=== PATIENT | male | born 2000 | race African-American/Black ===

== ENCOUNTER 2021-11-14 14:13 | Emergency (ER) | payer OTHER, SELFPAY ==
[2021-11-14 14:15] VITALS: BP 152/78; PULSE 100; RESP 24; TEMP 36.8; O2SAT 100
[2021-11-14 15:15] VITALS: O2SAT 98
--- NOTE | 2021-11-14 15:16 | PC.NURSE ---
pt amb to room 21. c/o n/v, joel and cough. tested positive for covid today and has all the things . pt did not receive vaccine.
[2021-11-14 15:36] VITALS: BP 100/53; PULSE 74; RESP 18; O2SAT 98
[2021-11-14] MEDS: ONDANSETRON HCL ODT 4 MG TABLET PO (15:36)
--- NOTE | 2021-11-14 15:37 | PC.NURSE ---
pt has partially drunk pasha d and 32 oz at bedside. pt given zofran for nausea. advised of plan to wait 20 min then attempt po intake and med for fever.
[2021-11-14 16:06] VITALS: TEMP 36.9
--- NOTE | 2021-11-14 16:37 | PC.NURSE ---
father updated of pts condition at the nurses desk and pts mother updated upon her call again to the department. made aware that pt has a cell phone at his bedside and that we have received multiple calls from multiple family members and we need to have one lithography contact worker. mother agreed that person would be her.
--- NOTE | 2021-11-14 18:30 | ED.GENADULT ---
HPI - General Adult General Chief complaint: Upper Respiratory Infection Stated complaint: COVID+ NV Time Seen by Provider: 11/14/21 15:18 Source: patient Mode of arrival: ambulatory Limitations: no limitations History of Present Illness HPI narrative: Patient is a 21-year-old unvaccinated male presenting with chief complaint of nausea and vomiting that began today. Patient also reports body aches and headache. Patient reports that he tested positive for COVID on a home test today. Patient denies accompanying abdominal pain with nausea and vomiting. He denies diarrhea. He reports feeling fevers but not documented in the fever as well as having occasional coughs. Patient denies chest pain, shortness of breath, neurological deficits or any other emergent symptoms. Patient denies having any chronic medical issues. Related Data Home Medications Medication Instructions Recorded Confirmed No Home Medications 11/14/21 11/14/21 Allergies Allergy/AdvReac Type Severity Reaction Status Date / Time No Known Allergies Allergy Verified 11/14/21 15:15 Review of Systems Review of Systems: CONSTITUTIONAL: Reports subjective fever and body aches denies chills, or sweats. EYES: Denies visual changes, redness, or discharge. ENT: Denies rhinorrhea, congestion, sore throat, or otalgia. CARDIOVASCULAR: Denies chest pain, palpitations, or edema. RESPIRATORY: Reports cough denies dyspnea. GASTROINTESTINAL: Reports nausea and vomiting denies abdominal pain, or diarrhea. GENITOURINARY: Denies dysuria or hematuria. SKIN: Denies rash or itching. MUSCULOSKELETAL: Denies back pain, joint pain, or myalgia. NEUROLOGIC: Reports headache denies numbness, dizziness, or weakness. PSYCHIATRIC: Denies anxiety or depression. Exam Narrative: GENERAL: Well-appearing, well-nourished. Not diaphoretic. Appears mildly uncomfortable. HEAD: Normocephalic, atraumatic. EYES: PERRLA and EOMI. CHEST: Clear to auscultation. No respiratory distress. No wheezes rales or rhonchi. HEART: Regular rate and rhythm. ABDOMEN: Soft, nontender, nondistended, normal active bowel sounds. EXTREMITIES: Normal range of motion. No edema. SKIN: Warm, dry, no rash. NEURO: No focal deficits. Alert and oriented x3. PSYCH: Normal mood and affect. Course Vital Signs Vital signs: Vital Signs Temperature 98.2 F 11/14/21 14:15 Pulse Rate 100 11/14/21 14:15 Respiratory Rate 24 H 11/14/21 14:15 Blood Pressure 152/78 H 11/14/21 14:15 Pulse Oximetry 100 11/14/21 14:15 Temperature 98.5 F 11/14/21 16:06 Pulse Rate 74 11/14/21 15:36 Respiratory Rate 18 11/14/21 15:36 Blood Pressure 100/53 L 11/14/21 15:36 Pulse Oximetry 98 11/14/21 15:36 Medical Decision Making MDM Narrative Medical decision making narrative: Patient vital signs are stable. Patient is not tachycardic. Patient respiratory rate is normal at 18. Patient is oxygenation is at 100% on room air. Patient has been given Zofran and has been able to drink plenty of fluids while in the emergency department. Patient will be prescribed Zofran and Tessalon Perles for home. Patient instructed to return to emergency department if he has any emergent symptoms. Patient instructed to follow the department guidelines in regards to pointing extra. Vital Signs Vital Signs: Vital Signs Temperature 98.2 F 11/14/21 14:15 Pulse Rate 100 11/14/21 14:15 Respiratory Rate 24 H 11/14/21 14:15 Blood Pressure 152/78 H 11/14/21 14:15 Pulse Oximetry 100 11/14/21 14:15 Temperature 98.5 F 11/14/21 16:06 Pulse Rate 74 11/14/21 15:36 Respiratory Rate 18 11/14/21 15:36 Blood Pressure 100/53 L 11/14/21 15:36 Pulse Oximetry 98 11/14/21 15:36 Discharge Plan Discharge Clinical Impression: COVID-19 Nausea & vomiting Qualifiers: Vomiting type: unspecified Qualified Code(s): R11.2 - Nausea with vomiting, unspecified Patient Disposition: Home, Self-Care Condition: Imp
== END 2021-11-14 17:15 | disposition home or self-care (01) ==
PROVIDERS: Emergency Provider Emergency Medicine; PCP Pediatrics Adolescent Medicine
DX: U07.1 COVID-19 (principal); R11.2 Nausea with vomiting, unspecified
CPT/HCPCS: 99283; A9270

== ENCOUNTER 2022-09-23 02:08 | Emergency (ER) | payer SELFPAY ==
[2022-09-23 02:15] VITALS: BP 124/75; PULSE 66; RESP 16; TEMP 36.8; O2SAT 100
--- NOTE | 2022-09-23 02:16 | ED_ITS ---
HPI - URI/Sore Throat General Chief Complaint: Upper Respiratory Infection Stated Complaint: I just tested positive for COVID Time Seen by Provider: 09/23/22 02:15 History of Present Illness HPI Narrative: 22-year-old male no medical problems presents to the emergency room stating I j ust tested positive for COVID and I can handle the symptoms. . Patient is complaining of body aches, fever, headaches, nausea and diarrhea. Patient denies any shortness of breath or difficulty breathing. Related Data Allergies Allergy/AdvReac Type Severity Reaction Status Date / Time No Known Allergies Allergy Verified 11/14/21 15:15 Review of Systems Review of Systems: CONSTITUTIONAL: Reports fever EYES: Denies visual changes, redness, or discharge. ENT: Denies rhinorrhea, congestion, sore throat, or otalgia. CARDIOVASCULAR: Denies chest pain, palpitations, or edema. RESPIRATORY: Denies cough or dyspnea. GASTROINTESTINAL: Denies abdominal pain, nausea, vomiting, or diarrhea. GENITOURINARY: Denies dysuria or hematuria. SKIN: Denies rash or itching. MUSCULOSKELETAL: Ports body aches NEUROLOGIC: Reports headache PSYCHIATRIC: Denies anxiety or depression. Exam Narrative: GENERAL: Well-appearing, well-nourished, no physical limitations, and in no acute distress. HEAD: Normocephalic, atraumatic. EYES: Conjunctivae normal, PERRLA and EOMI. ENT: External nose normal, Nares clear, no rhinorrhea or epistaxis. Mucous membranes moist. Oropharynx without tonsillar hypertrophy exudate or other lesions. External ears normal, bilateral TMs normal bilaterally NECK: Supple. No adenopathy or masses. CHEST: Clear to auscultation. No respiratory distress. No wheezes rales or rhonchi. HEART: Regular rate and rhythm. No murmur heard. Normal peripheral pulses. EXTREMITIES: Normal range of motion. No edema. No clubbing or cyanosis SKIN: Warm, dry, no rash. No noted wounds NEURO: No focal deficits. Alert and oriented x3. MAEW. CN's II-XI intact bilaterally, normal gait PSYCH: Cooperative. Normal mood and affect. Discharge Plan Discharge Clinical Impression: COVID-19 Patient Disposition: Home, Self-Care Condition: Stable Instructions: Antibiotic Form, COVID-19 (Coronavirus Disease 2019) (ED) Additional Instructions: Recommend quarantining for the next 5 days per CDC guidelines. Prescriptions: New ondansetron 4 mg tablet,disintegrating 4 mg PO Q8H Qty: 14 0RF No Action ondansetron 4 mg tablet,disintegrating 4 mg PO Q6H PRN (Reason: nausea and vomiting) Qty: 14 0RF Follow-up/Referrals: Reynaldo,Vijaya Lopez MD [Primary Care Provider] - Time of Disposition: 02:13
[2022-09-23 02:17] VITALS: O2SAT 100
== END 2022-09-23 02:22 | disposition home or self-care (01) ==
LOC: ANHED 02:21
PROVIDERS: Emergency Provider Nurse Practitioner Family; PCP Pediatrics Adolescent Medicine
DX: U07.1 COVID-19 (principal)
CPT/HCPCS: 99283

== ENCOUNTER 2023-09-23 13:35 | Emergency (ER) | payer OTHER, SELFPAY ==
--- NOTE | ~2023-09-23 | US_ITS ---
EXAMINATION: US abdomen limited DATE: 09/23/2023 16:02 INDICATION: RUQ pain TECHNIQUE: Multiple grayscale and Doppler ultrasound images of limited portions of the abdomen were o btained. COMPARISON: None available. FINDINGS: The visualized portions of the pancreas are normal. The liver is normal with normal echogen icity and echotexture. No surface nodularity. Normal hepatopetal flow in the main portal vein. The ga llbladder is partially contracted, with borderline wall thickening likely related to the degree of co ntraction, no pericholecystic fluid or stones. The common bile duct measures 2 mm. There was no sonog raphic Flowers sign. IMPRESSION: Partially contracted but otherwise unremarkable gallbladder appearance. Otherwise normal limited abdominal ultrasound findings. Reviewed, dictated and finalized at location K. [employer]
[2023-09-23 13:36] VITALS: BP 116/62; PULSE 72; RESP 18; TEMP 36.6; O2SAT 99
[2023-09-23 13:49] LABS: Basophils Absolute Auto 0.1 K/mm3 (0.0-0.1); Basophils Percent Auto 0.8 % (0.2-1.2); Eosinophils Absolute Auto 0.3 K/mm3 (0-0.3); Eosinophils Percent Auto 2.8 % (0-4.4); Hematocrit 40.9 % (42.0-52.0); Immature Granulocyte Absolute 0.04 K/mm3 (0.00-0.031); Immature Granulocyte Percent A 0.4 % (0-0.5); Lymphocytes Absolute Auto 1.43 K/mm3 (0.9-3.2); Mean Corpuscular HGB Conc 34.2 g/dl (32-36); Mean Corpuscular Hemoglobin 31.7 pg (26-34); Mean Corpuscular Volume 92.5 fl (80-100); Monocytes Absolute Auto 0.8 K/mm3 (0.1-0.6); Monocytes Percent Auto 9.4 % (2.6-8.5); Neutrophils Absolute Auto 6.3 K/mm3 (1.3-6.7); Neutrophils Percent Auto 70.6 % (45.5-73.1); Platelet Count Result 198 k/mm3 (150-375); Red Blood Count 4.42 M/mm3 (4.6-6.20); Red Cell Distribution Width 12.3 % (11.5-14.5)
[2023-09-23 13:55] LABS: Appearance Urine Clear (Clear); Bilirubin Urine Negative (Negative); Blood Urine Negative (Negative); Color Urine Yellow (Yellow); Glucose Urine UA Negative (Negative); Ketones Urine Negative (Negative); Leukocyte Esterase Ur Negative LEU/UL (Negative); Nitrate Urine Negative (Negative); Protein Urine Negative (Negative); Specific Grav Ur 1.026 (1.001-1.035)
[2023-09-23 13:59] LABS: Alanine Aminotransferase 13 U/L (6-50); Albumin Level 4.5 g/dL (3.5-5.1); Alkaline Phosphatase 65 U/L (38-126); Anion Gap 11 mmol/L (8-16); Aspartate Amino Transferase 30 U/L (17-59); Blood Urea Nitrogen 10 mg/dL (9-20); Calcium 9.1 mg/dL (8.4-10.2); Carbon Dioxide 28 mmol/L (22-30); Chloride 103 mmol/L (98-107); Estimated CRCL calculation 125 ml/min; Estimated Glomerular Filt Rate > 60; Glucose 98 mg/dL (65-110); Lipase 47 U/L (23-300); Potassium 4.1 mmol/L (3.4-5.0); Sodium 142 mmol/L (137-145)
[2023-09-23 14:13] LABS: Add Urine Microscopic? NO
--- NOTE | 2023-09-23 15:23 | ED.ABDPAIN ---
HPI - Abdominal Pain General Chief Complaint: Abdominal Pain Stated Complaint: ab pain Time Seen by Provider: 09/23/23 15:22 History of Present Illness HPI narrative: Patient is a healthy 23-year-old male here with right upper quadrant pain. He states that the pain began about 1 week ago, is intermittent in nature and usually occurs about 30 minutes after eating. He states that it will be persistent delayed take something like ibuprofen or Tylenol which seems to resolve the symptoms. He denies any associated nausea or vomiting, no fever or chills. He has experienced a couple episodes of diarrhea. No prior abdominal surgeries. No prior biliary colic type symptoms in the past prior to this last 1 week. No prior abdominal surgeries. No sick contacts. No cough, congestion. Related Data Allergies Allergy/AdvReac Type Severity Reaction Status Date / Time No Known Allergies Allergy Verified 09/23/23 13:36 Review of Systems Review of Systems: All systems reviewed & are unremarkable except as noted in HPI and below Exam Narrative: GENERAL: Well-appearing, well-nourished, and in no acute distress. HEAD: Normocephalic, atraumatic. EYES: PERRLA and EOMI. ENT: Nares clear. Mucous membranes moist. NECK: Supple. CHEST: Clear to auscultation. No respiratory distress. HEART: Regular rate and rhythm. Normal peripheral pulses. ABDOMEN: Soft, non distended, no rebound or guarding. RUQ tenderness with + flowers sign. No McBurney point tenderness. EXTREMITIES: Normal range of motion. No edema. SKIN: Warm, dry, no rash. NEURO: No focal deficits. Alert and oriented x3. PSYCH: Normal mood and affect. Course Course Emergency Course: Chart review performed patient here with RUQ abdominal pain x1 week. Triage vitals normal. Last visit was ED visit in 2021 for COVID. Triage lab work reviewed, no leukocytosis, normal electrolytes, Bilirubin minimally elevated at 2.0, remainder of LFTs normal. UA negative for UTI. Patient seen and evaluated, non toxic appearing, RUQ tenderness and + Flowers's sign. Will do right upper quadrant ultrasound to evaluate for possible biliary pathology. Ultrasound partially contracted but otherwise unremarkable. Will give GI cocktail and plan to discharged with primary care follow-up. The results of pertinent diagnostic studies and exam findings were discussed. The patient?s provisional diagnosis and plan of care were discussed with the patient and present family. The patient and/or present family expressed understanding of the diagnosis and plan. The nurse was instructed to provide written instructions and appropriate follow-up information. The patient understands their need and responsibility to obtain additional follow-up as instructed. The risks of medications administered and prescribed were discussed with the patient and family present. Vital Signs Vital signs: Vital Signs Temperature 97.9 F 09/23/23 13:36 Pulse Rate 72 09/23/23 13:36 Respiratory Rate 18 09/23/23 13:36 Blood Pressure 116/62 09/23/23 13:36 Pulse Oximetry 99 09/23/23 13:36 Oxygen Delivery Room Air 09/23/23 13:36 Temperature 97.9 F 09/23/23 13:36 Pulse Rate 76 09/23/23 17:07 Respiratory Rate 16 09/23/23 17:07 Blood Pressure 124/76 09/23/23 17:07 Pulse Oximetry 99 09/23/23 17:07 Oxygen Delivery Room Air 09/23/23 13:36 MDM - Abdominal Pain Lab Data 09/23/23 13:42 09/23/23 13:42 Labs: Lab Results 09/23/23 09/23/23 Range/Units 13:42 13:45 WBC 9.0 (4.5-10.0) K/mm3 RBC 4.42 L (4.6-6.20) M/mm3 Hgb 14.0 (14.0-18.0) g/dL Hct 40.9 L (42.0-52.0) % MCV 92.5 (80-100) fl MCH 31.7 (26-34) pg MCHC 34.2 (32-36) g/dl RDW 12.3 (11.5-14.5) % Plt Count 198 (150-375) k/mm3 MPV 10.0 (7.4-10.4) fl Immature Gran % (Auto) 0.4 (0-0.5) % Neut % (Auto) 70.6 (45.5-73.1) % Lymph % (Auto) 16.0 L (18.3-44.2) % [place] % (Au
[2023-09-23] MEDS: BELLADONNA ALK/PHENOB ELIX 10 ML, MAG HYDROX/ALUMINUM HYD/SIMETH 30 ML, LIDOCAINE HCL 2... PO (17:05)
[2023-09-23] MEDS: FAMOTIDINE 20 MG TABLET PO (17:06)
[2023-09-23 17:07] VITALS: BP 124/76; PULSE 76; RESP 16; O2SAT 99
== END 2023-09-23 17:12 | disposition home or self-care (01) ==
PROVIDERS: Emergency Provider Student in an Organized Health Care Education/Training Program; PCP Pediatrics Adolescent Medicine
DX: R10.11 Right upper quadrant pain (principal)
CPT/HCPCS: 36415; 76705; 80053; 81003; 83690; 85025; 99283; A9270